=== PATIENT | male | born 1970 | race Caucasian/White ===

== ENCOUNTER 2024-08-26 14:30 | Emergency (ER) | payer OTHER ==
[~2024-08-26] VITALS: Ht 185.4 cm; Wt 90.7 kg
[2024-08-26] MEDS ORDERED: TDAP [DIPH/PERTUSSIS/TET] 0.5 ML VIAL IM ONE (15:00)
[2024-08-26] MEDS: BACI/NEOM/POLY B OINT PKT 1 UDPKT PACKET TP ONE (15:00)
[2024-08-26] MEDS ORDERED: CLIN300C12 PO (15:25)
[2024-08-26] MEDS ORDERED: LIDOCAINE 2% 20 ML MDV ONE (15:30)
[2024-08-26] MEDS: LIDOCAINE HCL/PF 1% 30 ML VIAL TP ONE (15:36)
[2024-08-26 16:29] VITALS: BP 129/71; TEMP 98; O2SAT 96
== END 2024-08-26 16:30 | disposition home or self-care (01) ==
LOC: ER 14:37
DX: S62.525A Nondisplaced fracture of distal phalanx of left thumb, initial encounter for closed fracture (principal); Z88.0 Allergy status to penicillin; W22.8XXA Striking against or struck by other objects, initial encounter; Y93.89 Activity, other specified; Y92.39 Other specified sports and athletic area as the place of occurrence of the external cause; Y99.8 Other external cause status
CPT/HCPCS: 29130; 73140; 99283; J3490